=== PATIENT | male | born 1965 | race Caucasian/White ===

== ENCOUNTER 2017-01-12 22:23 | Emergency (ER) | payer MEDICAID ==
[~2017-01-12 22:23] MED LIST: BUSPAR15 MG PO; PENICILLIN; RISPERDAL2 MG PO; TRAZODONE HCL100 MG PO
[2017-01-12 23:26] LABS: BASOPHIL# 0.1 X10e3 (0-0.3); BASOPHIL% 0.9 % (0-2.5); EOSINOPHIL# 0.2 X10e3 (0-0.7); EOSINOPHIL% 1.8 % (0.0-7.0); HEMATOCRIT 37.7 % (38.0-50.0); HEMOGLOBIN 12.4 gm/dL (13.0-16.0); LYMPHOCYTE# 2.6 X10e3 (1.0-3.5); LYMPHOCYTE% 23.6 % (17.0-45.0); MEAN CELL VOLUME 95.8 FL (83-96); MEAN CORPUSCULAR HEMOGLOBIN 31.5 PG (28-34); MEAN CORPUSCULAR HGB CONC 32.8 g/dL (30-36); MEAN PLATELET VOLUME 8.5 FL (6.5-11.5); MONOCYTE# 1.2 X10e3 (0-1.0); MONOCYTE% 11.3 % (3.0-12.0); NEUTROPHIL# 6.8 X10e3 (1.5-7.1); NEUTROPHIL% 62.4 % (40-75); PLATELET COUNT 145 X10e3 (140-420); RED BLOOD COUNT 3.93 X10e (3.90-5.60); WHITE BLOOD COUNT 10.9 X10e3 (4.0-10.5)
[2017-01-12 23:28] LABS: DIFF IND NO
[2017-01-12 23:53] LABS: ALBUMIN SERUM 3.9 g/dL (3.5-5.0); BILIRUBIN,TOTAL 0.5 mg/dL (0.2-2.0); CALCIUM SERUM 8.1 mg/dL (8.4-10.2); CREATININE SERUM 0.7 mg/dL (0.6-1.4); GLOM FILT RATE Estimated 110.1 mL/min (>60); POTASSIUM 3.7 mmol/L (3.5-5.1); PROTEIN TOTAL SERUM 6.9 g/dL (6.0-8.3)
== END 2017-01-13 10:45 ==
LOC: CED 22:23
PROVIDERS: Emergency Medicine
DX: F10.129 Alcohol abuse with intoxication, unspecified (principal); Y90.8 Blood alcohol level of 240 mg/100 ml or more
CPT/HCPCS: 80053; 83690; 85025; 96360; 99285; G0480

== ENCOUNTER 2017-01-13 11:38 | Inpatient (IN) | payer MEDICAID ==
--- NOTE | ~2017-01-13 | PN ---
Unit #: [id number] #: [id number] Patient: CATALINA CARMICHAEL V [id number] [facility] [address] [place] [address] [id number] MR#: [id number] NAME: CATALINA CARMICHAEL V. ROOM: P182 Age: 51 Sex: M Admission Date: 01/13/2017 : 1965 Attending Physician: Reyna Henderson M.D. Admitting Physician: Lary Omer PROGRESS NOTES DATE OF SERVICE: 01/18/2017 DISCUSSION Mr. Carmichael is seen today in coverage for Dr. Henderson. He continues to have active alcohol withdrawal symptoms and an irritable mood. He appears to be mildly responding to internal stimuli, but will not admit to this. He does also appear to have some rambling thought processes. He has some suicidal ideations today. ASSESSMENT Schizoaffective disorder and alcohol dependence. PLAN We will continue current medications and the alcohol detox protocol. Dictated by... Emmanuel Black M.D. ULISES/cr TD: 01/18/2017 14:56 JOB #: [id number] [facility] PROGRESS NOTES Page 1 of 1 X Emmanuel Black MD X PROGRESS NOTE
--- NOTE | ~2017-01-13 | PN ---
Unit #: [id number] #: [id number] Patient: CATALINA CARMICHAEL V [id number] [facility] [address] [place] [address] [id number] MR#: [id number] NAME: CATALINA CARMICHAEL V. ROOM: P115 Age: 51 Sex: M Admission Date: 01/13/2017 : 1965 Attending Physician: Reyna Henderson M.D. Admitting Physician: Reyna Henderson M.D. Primary Care Physician: Alondra Primary Care Physician [facility] PROGRESS NOTES DATE January 15, 2017 DISCUSSION Mr. Carmichael is a 51-year-old, white male who was seen today and chart was reviewed. Case was discussed with the staff who report patient had a rough night last night and was extremely agitated, irritable, and hitting himself and banging his head. A p.r.n. medication had to be given. He was able to finally calm himself down, but has been placed on 1:1 (1) precaution as patient was sitting in bed and as such was unable to carry on meaningful conversation. It appears that he has been exhibiting significant depression, anger, agitation, and irritability. As such, will recommend maintaining him on his current level of precautions. Will monitor his response to the treatment intervention and will make further adjustments as needed. Dictated by... Lary Omer/brock TD: 01/17/2017 09:33 JOB #: [id number] [facility] PROGRESS NOTES Page 1 of 1 X Reyna Henderson MD PROGRESS NOTE
--- NOTE | ~2017-01-13 | DS ---
Unit #: [id number] #: [id number] Patient: CATALINA CARMICHAEL V [id number] [facility] [address] [place] [address] [id number] I MR#: [id number] NAME: CATALINA CARMICHAEL V. ROOM: P182 Age: 51 Sex: M Admission Date: 01/13/2017 : 1965 Discharge Date: 01/20/2017 Attending Physician: Reyna Henderson M.D. Primary Care Physician: Primary Care Physician No DISCHARGE SUMMARY IDENTIFYING DATA Mr. Carmichael is a 51-year-old white male, who is a resident of [place], [place] and is known to us from previous encounter and was self-referred to the hospital. DISCHARGE DIAGNOSES Psychiatric: Schizoaffective disorder, bipolar type, most recent episode depressed, recurrent, moderate, without psychotic features; alcohol dependence, moderate, in acute withdrawals. Medical: Hepatitis C, status post splenectomy. Stressors: Moderate psychosocial stressors. HISTORY OF PRESENT ILLNESS Please see initial psychiatric evaluation for details. PAST PSYCHIATRIC HISTORY Please see initial psychiatric evaluation for details. PAST MEDICAL HISTORY Please see initial psychiatric evaluation for details. HOSPITAL COURSE The patient was admitted to the adult psychiatric and chemical dependency unit at [facility] lina [facility] and was oriented to the hospital environment. Routine p.r.n. medications were initiated, and he was started back on his home medications and alcohol detox protocol was initiated as well. He was initially seen to be very agitated, irritable, restless; however, he was able to come out of the detox without any complications and was willing to continue treatment on an outpatient basis and as such, it was decided that he will be discharged home and will continue treatment on an outpatient basis. DISCHARGE MEDICATIONS None. DISCHARGE CONDITION Stable. PROGNOSIS Fair. Dictated by... Reyna Henderson M.D. Unit #: [id number] #: [id number] Patient: CATALINA CARMICHAEL V IAA/modl TD: 01/20/2017 06:34 JOB #: [id number] DISCHARGE SUMMARY Page 1 of 1 X Reyna Henderson MD X DISCHARGE SUMMARY
--- NOTE | ~2017-01-13 | DS ---
Unit #: [id number] #: [id number] Patient: CATALINA CARMICHAEL V [id number] [facility] [address] [place] [address] [id number] I MR#: [id number] NAME: CATALINA CARMICHAEL V. ROOM: P182 Age: 51 Sex: M Admission Date: 01/13/2017 : 1965 Discharge Date: Attending Physician: Reyna Henderson M.D. Primary Care Physician: Primary Care Physician No DISCHARGE SUMMARY ADDENDUM Mr. Carmichael is a 51-year-old white male, who was scheduled to be discharged yesterday on 01/20/2017; however, his power of resident intern was trying to get him into long-term rehab level of care and bed was arranged for 01/21/2017 and therefore, his discharge was canceled until he could to be transferred to that facility. Dictated by... Lary Omer/cr TD: 01/21/2017 06:19 JOB #: [id number] DISCHARGE SUMMARY Page 1 of 1 X Reyna Henderson MD X DISCHARGE SUMMARY
--- NOTE | ~2017-01-13 | HP ---
Unit #: [id number] #: [id number] Patient: CATALINA CARMICHAEL V [id number] [place] [address] [id number] I MR#: [id number] NAME: CATALINA CARMICHAEL V. ROOM: P182 Age: 51 Sex: M Admission Date: 01/13/2017 : 1965 Attending Physician: Reyna Henderson M.D. Admitting Physician: Reyna Henderson M.D. Primary Care Physician: Primary Care Physician No HISTORY AND PHYSICAL HISTORY OF PRESENT ILLNESS Catalina is a 51 year old admitted to [facility] because of his continued abuse of alcohol. He has had numerous admissions to this facility for treatment of the same. PAST MEDICAL HISTORY 1. Long history of alcohol abuse. 2. Hepatitis C. 3. History of kidney stones. PAST SURGICAL HISTORY 1. Splenectomy secondary to blunt trauma. 2. Abdominal exploration x 2. 3. Fractured left ankle with ORIF. 4. Oral. ALLERGIES Penicillin (rash). SOCIAL HISTORY Smokes one pack per day. Drinks on a daily basis and has a history of polysubstance abuse. FAMILY HISTORY Medically noncontributory. REVIEW OF SYSTEMS CONSTITUTIONAL: No fever or chills. HEENT: Denies any sore throat, ear pain or runny nose. CARDIOVASCULAR: Denies chest pain, irregular heart rhythm or palpitations. CHEST: Denies shortness of breath or cough. No hemoptysis. GASTROINTESTINAL: Denies nausea, vomiting, diarrhea or chronic constipation. ENDOCRINE: Denies history of increased thirst or urination. No recent significant weight loss or gain. GENITOURINARY: Denies dysuria, frequency, or hematuria. SKIN: Denies any rashes. HEMATOLOGIC: Denies history of increased bleeding or bruising. MUSCULOSKELETAL: Denies any hot, swollen joints. No generalized muscle pain. NEUROLOGIC: Denies problems with vision or speech. No frequent, severe headaches. No numbness, tingling or weakness in any extremities. Denies Unit #: [id number] #: [id number] Patient: CATALINA CARMICHAEL V loss of bladder or bowel control. CURRENT MEDICATIONS Detox protocol PHYSICAL EXAMINATION GENERAL: Alert, well-nourished, in no apparent distress. VITAL SIGNS: Blood pressure 118/66, heart rate 80, respirations 16, temperature 98.6. WEIGHT: 165 pounds. HEIGHT: 5'10". SKIN: Warm and dry without rash or lesion. HEENT: Normocephalic. TMs not viewed. Oral and nasal passages clear. Conjunctivae clear. Pupils equal, round and reactive to light and accommodation. Extraocular movements intact. NECK: Supple without lymphadenopathy or thyromegaly. HEART: Regular rate and rhythm without murmur. LUNGS: Clear. ABDOMEN: Soft, nontender. : Not done. EXTREMITIES: No evidence of cyanosis, clubbing or edema. Moves all extremities without focal deficit. NEUROLOGICAL: Grossly within normal limits. Cranial Nerves: II: Visual fragoso are intact. III, IV AND : Extraocular movements are intact. Pupils are equal, round and reactive to light. V: Facial sensation is grossly normal. VII: Facial movements and expression are normal. VIII: Auditory acuity grossly intact. IX, X: Uvula is midline. Phonation is normal. XI: Patient shrugs shoulders and turns head normally. XII: Tongue protrudes in the midline. Sensory and Motor Function: Sensory and motor sensation is grossly normal. Motor: moves all extremities well. Coordination: Gait is normal. Deep Tendon Reflexes: Intact. IMPRESSION Psychiatric admission RECOMMENDATIONS PSYCHIATRIC: Per psychiatrist. MEDICAL: I see no contraindications to participating in facility's activities. MEDICAL PROGNOSIS Good. MEDICAL CONDITION Stable. Dictated by... Kelley Ash P.A.-C. for Lary Nicholas/car Unit #: [id number] #: [id number] Patient: CATALINA CARMICHAEL V TD: 01/14/2017 03:22 JOB #: [id number] HISTORY AND PHYSICAL Page 1 of 1 X Kelley Ash HISTORY AND PHYSICAL
--- NOTE | ~2017-01-13 | PA ---
Unit #: [id number] #: [id number] Patient: CATALINA CARMICHAEL V [id number] [facility] [address] [place] [address] [id number] I MR#: [id number] NAME: CATALINA CARMICHAEL V. ROOM: P204 Age: 51 Sex: M Admission Date: 01/13/2017 : 1965 Date of Assessment: 01/13/2017 Attending Physician: Reyna Henderson M.D. Admitting Physician: Reyna Henderson M.D. PSYCHIATRIC ASSESSMENT DATE OF SERVICE 01/13/2017. IDENTIFYING DATA Mr. Carmichael is a 51 years old single white male, who is a resident of a [place], [place] who is known to us from previous multiple encounters and was transferred to us from [facility] on 72 hours hold. CHIEF COMPLAINT "Suicidal ideation and plan to overdose or shoot myself." HISTORY OF PRESENT ILLNESS Mr. Carmichael is a 51-year-old white male who has long history of chronic mental illness and substance abuse and dependence, who presented to [facility] on 01/12/2017 that indicated his name was Catalina Quinonez and was verbalizing suicidal ideation with a plan to overdose or shoot himself. He was placed on 72 hours hold. The patient stated that he is tired and has given up and he does not want to live at [facility] any more, but his tax attorney, who is also his POA, will not listen to him and the patient stated that he was tired of life and people taking advantage of him and "I'm tired." The patient indicated that people are rotten and cannot trust them and the patient continued to ruminate about his housing and untrustworthy people and would not answer questions other than repeat same information. The ER nurse reported that the patient was brought in by EMS after being [place] lying [place] of a bar [place] and his blood alcohol level was 0.393 when he arrived at the emergency room where he has suffered with alcohol addiction most of his life and reported his name is Catalina Quinonez, and it was not until the clinician assessed him today that it was discovered his name actually is Catalina Carmichael. He has several admissions at [facility]ina [facility] and has history of chronic mental illness and as such, was medically cleared and then was transferred to us. SUBSTANCE ABUSE HISTORY The patient reports extensive history of substance abuse and dependence including experimentation with opioids and crack and cannabis and alcohol remains his drug of choice as he has been drinking regularly most of his life. PAST PSYCHIATRIC HISTORY The patient has a history of multiple inpatient psychiatric and chemical dependency treatments at [facility] in addition to being at [facility], and has been diagnosed and treated for schizoaffective Unit #: [id number] #: [id number] Patient: CATALINA CARMICHAEL V bipolar disorder and alcohol dependence. He has history of poor compliance with outpatient treatment once again. He is not seeing a psychiatrist, not taking any psychotropic medications. PAST MEDICAL HISTORY Hepatitis C, status post splenectomy. ALLERGIES Penicillin. PERSONAL AND SOCIAL HISTORY A 51-year-old white male, who reports that he is single, unemployed, and essentially homeless and has poor social support system. MENTAL STATUS EXAMINATION Middle-aged white male, who was casually dressed with fair personal hygiene, appears to be in no acute distress or discomfort. He was awake and alert on interaction with intact orientation to time, place, and person. His mood was anxious and depressed with a congruent affect. His speech was slow and restricted in content. His thought processes were disorganized with some looseness of associations and flight of ideas and suicidal ideations. His insight and judgment remain significantly impaired. DIAGNOSTIC IMPRESSION Psychiatric: Schizoaffective disorder, bipolar type, most recent episode depressed, recurrent, moderate, without psychotic features; alcohol dependence, moderate, and acute withdrawal. Medical: Hepatitis C, status post splenectomy. Stressors: Moderate psychosocial stressors. TREATMENT PLAN 1. The patient has presented with history of mood disorder and has been decompensating and will need inpatient hospitalization for safety and stabilization. We will start him back on his home medications and detox protocol will be initiated as well. 2. Supportive therapy was provided to the patient. 3. Safe, structured, and nourishing environment will be provided. ESTIMATED LENGTH OF STAY 5 to 7 days. ABILITY TO HELP SELF Limited. WILLINGNESS TO HELP SELF The patient appears to be willing to help self. STRENGTHS 1. Communicative. 2. Cooperative. PROBLEMS 1. Chronic dysphoric symptoms. 2. Chronic chemical dependency. 3. Poor social support system. DISCHARGE CRITERIA This will be contingent upon the patient's ability to show resolution of Unit #: [id number] #: [id number] Patient: CATALINA CARMICHAEL V his depression and anxiety and his ability to stay safe to himself, particularly after discharge from the hospital. Dictated by... Lary Omer/cr TD: 01/14/2017 07:18 JOB #: [id number] PSYCHIATRIC ASSESSMENT Page 1 of 1 X Reyna Henderson MD PSYCHIATRIC ASSESSMENT
--- NOTE | ~2017-01-13 | PN ---
Unit #: [id number] #: [id number] Patient: CATALINA CARMICHAEL V [id number] [facility] [address] [place] [address] [id number] I MR#: [id number] NAME: CATALINA CARMICHAEL V. ROOM: P204 Age: 51 Sex: M Admission Date: 01/13/2017 : 1965 Attending Physician: Reyna Henderson M.D. Admitting Physician: Reyna Henderson M.D. Primary Care Physician: Alondra Primary Care Physician [facility] PROGRESS NOTES DATE 01/13/2017. DISCUSSION Mr. Carmichael is a 59-year-old white male who was seen today and chart reviewed. The case was discussed with the staff. He has been anxious, withdrawn and kept to himself, disorganized, unable to carry on a meaningful conversation and has had significant (1) personal hygiene. MENTAL STATUS EXAMINATION Middle-aged white male who was casually dressed and with poor personal hygiene. He appears to be in no acute distress. He was awake and alert with impaired attention and concentration. Mood was anxious and dysphoric. His speech is fluent, restricted in content. His thought process (2) looseness of association with suicidal ideation. His insight and judgment remain significantly impaired. TREATMENT PLAN 1. Continue on current medication and treatment protocol. Will monitor response to the medication and make further adjustments as needed. 2. Will continue with followup. Dictated by... Lary Omer/mejia TD: 01/15/2017 11:26 JOB #: [id number] [facility] PROGRESS NOTES Page 1 of 1 X Reyna Henderson MD PROGRESS NOTE
--- NOTE | ~2017-01-13 | PN ---
Unit #: [id number] #: [id number] Patient: CATALINA CARMICHAEL V [id number] [facility] [address] [place] [address] [id number] I MR#: [id number] NAME: CATALINA CARMICHAEL V. ROOM: P182 Age: 51 Sex: M Admission Date: 01/13/2017 : 1965 Attending Physician: Reyna Henderson M.D. Admitting Physician: Reyna Henderson M.D. Primary Care Physician: Primary Care Physician Alondra RYAN NOTES DATE 01/17/2017 DISCUSSION Mr. Carmichael is a 51-year-old white male who was seen today and chart was reviewed and case was discussed with the staff. He has been anxious, withdrawn though has not shown any agitation, irritability and has been cooperative with treatment recommendations as he has been taking medications and tolerating them fairly well with no reported side effects. MENTAL STATUS EXAMINATION Middle-aged white male who was casually dressed with fair personal hygiene and appears to be in no acute distress or discomfort. He was awake and alert with impaired attention and concentration. His mood was anxious with congruent affect. His speech is slow and restricted in content. He denies any suicidal or homicidal ideations and also denies any auditory or visual hallucinations. His insight and judgement remains slightly impaired. TREATMENT PLAN 1. Will continue on his current medications and treatment protocol. Will monitor his response and make further adjustments as needed. 2. Will continue to follow up. Dictated by... Lary Omer/lisa TD: 01/20/2017 08:27 JOB #: [id number] Unit #: [id number] #: [id number] Patient: CATALINA CARMICHAEL PROGRESS NOTES Page 1 of 1 X Reyna Henderson MD PROGRESS NOTE
== END 2017-01-21 09:50 | disposition home or self-care (01) | DRG 885 ==
LOC: P1E 11:38 → P2S 01-14 22:35 → P1S 01-15 15:53 → P1E 01-17 10:43
PROC: HZ2ZZZZ Detoxification Services for Substance Abuse Treatment (ICD-10-PCS; principal; 2017-01-13)
DX: F25.0 Schizoaffective disorder, bipolar type (principal); F31.32 Bipolar disorder, current episode depressed, moderate; F10.239 Alcohol dependence with withdrawal, unspecified; B19.20 Unspecified viral hepatitis C without hepatic coma; F17.210 Nicotine dependence, cigarettes, uncomplicated

== ENCOUNTER 2017-03-10 04:00 | Inpatient (IN) | payer MEDICAID ==
--- NOTE | ~2017-03-10 | HP ---
Unit #: [id number] #: [id number] Patient: CATALINA CARMICHAEL V [id number] [place] [address] [id number] I MR#: [id number] NAME: CATALINA CARMICHAEL V. ROOM: [facility] Age: 51 Sex: M Admission Date: 03/10/2017 : 1965 Attending Physician: Reyna Henderson M.D. Admitting Physician: Ryena Henderson M.D. Primary Care Physician: Generic Doctor Not In System HISTORY AND PHYSICAL HISTORY OF PRESENT ILLNESS Catalina is a 51 year old admitted to [address] [place] [address] because of his continued abuse of alcohol. He has had numerous admissions to this facility. PAST MEDICAL HISTORY 1. Long history of alcohol abuse. 2. Hepatitis C. 3. History of kidney stones. PAST SURGICAL HISTORY 1. Splenectomy secondary to blunt trauma. 2. Abdominal exploration x2. 3. Fractured left ankle with ORIF. 4. Oral. ALLERGIES Penicillin (rash). SOCIAL HISTORY Smokes one pack per day. Drinks on a daily basis. Has a history of polysubstance abuse. FAMILY HISTORY Medically noncontributory. REVIEW OF SYSTEMS CONSTITUTIONAL: No fever or chills. HEENT: Denies any sore throat, ear pain or runny nose. CARDIOVASCULAR: Denies chest pain, irregular heart rhythm or palpitations. CHEST: Denies shortness of breath or cough. No hemoptysis. GASTROINTESTINAL: Denies nausea, vomiting, diarrhea or chronic constipation. ENDOCRINE: Denies history of increased thirst or urination. No recent significant weight loss or gain. GENITOURINARY: Denies dysuria, frequency, or hematuria. SKIN: Denies any rashes. HEMATOLOGIC: Denies history of increased bleeding or bruising. MUSCULOSKELETAL: Denies any hot, swollen joints. No generalized muscle pain. NEUROLOGIC: Denies problems with vision or speech. No frequent, severe headaches. No numbness, tingling or weakness in any extremities. Denies loss of bladder or bowel control. Unit #: [id number] #: [id number] Patient: CATALINA CARMICHAEL V CURRENT MEDICATIONS Detox protocol. PHYSICAL EXAMINATION GENERAL: Alert, well nourished. No apparent distress. VITAL SIGNS: Blood pressure 126/76, heart rate 80, respirations 16, and temperature 98.6. WEIGHT: 179. SKIN: Warm and dry without rash or lesion. HEENT: Normocephalic. TMs not viewed. Oral and nasal passages clear. Conjunctivae clear. PERRLA. EOMs intact. NECK: Supple without lymphadenopathy or thyromegaly. HEART: Regular rate and rhythm without murmur. LUNGS: Clear. ABDOMEN: Soft, nontender. : Not done. EXTREMITIES: No evidence of cyanosis, clubbing or edema. Moves all without focal deficit. NEUROLOGICAL: Grossly within normal limits. Cranial Nerves: II: Visual fragoso are intact. III, IV AND : Extraocular movements are intact. Pupils are equal, round and reactive to light. V: Facial sensation is grossly normal. VII: Facial movements and expression are normal. VIII: Auditory acuity grossly intact. IX, X: Uvula is midline. Phonation is normal. XI: Patient shrugs shoulders and turns head normally. XII: Tongue protrudes in the midline. Sensory and Motor Function: Sensory and motor sensation is grossly normal. Motor: moves all extremities well. Coordination: Gait is normal. Deep Tendon Reflexes: Intact. IMPRESSION Psychiatric admission. RECOMMENDATIONS PSYCHIATRIC: Per psychiatrist. MEDICAL: I see no contraindication to participate in this facility's activities. MEDICAL PROGNOSIS Good. MEDICAL CONDITION Stable. Dictated by... Kelley Ash PKylerAKyler-Derick. for Lary Nicholas/yadira TD: 03/11/2017 11:13 JOB #: [id number] Unit #: [id number] #: [id number] Patient: CATALINA CARMICHAEL V HISTORY AND PHYSICAL Page 1 of 1 X Kelley Ash HISTORY AND PHYSICAL
--- NOTE | ~2017-03-10 | PN ---
Unit #: [id number] #: [id number] Patient: CATALINA CARMICHAEL V [id number] [facility] [address] [place] [address] [id number] I MR#: [id number] NAME: CATALINA CARMICHAEL V. ROOM: P121 Age: 51 Sex: M Admission Date: 03/10/2017 : 1965 Attending Physician: Reyna Henderson M.D. Admitting Physician: Reyna Henderson M.D. Primary Care Physician: Glo Doctor Not In System [facility] PROGRESS NOTES DATE 03/11/2017 DISCUSSION Mr. Carmichael is a 51-year-old, white male who was seen today and chart was reviewed and case was discussed with the staff. He has been anxious, withdrawn and rather seclusive to himself. Meanwhile, he has been cooperative with the treatment recommendations. He has been taking the medication and tolerating them fairly well with no reported side effects. MENTAL STATUS EXAM Middle-aged white male who was casually dressed with fair personal hygiene, appears to be in slight distress or discomfort. He was awake and alert with impaired attention and concentration. His mood was anxious with a congruent affect. His speech was slow and restricted in content. He denies any suicidal or homicidal ideation. His thought processes were disorganized with some looseness of associations and flight of ideas and paranoid ideation and delusional behavior. His insight and judgement remains significantly impaired. TREATMENT PLAN 1. We will continue him on his current medications and treatment protocol. We will monitor his response to the medication and make further adjustments as needed. 2. We will continue to follow up. Dictated by... Lary Omer/car TD: 03/12/2017 03:21 JOB #: [id number] Unit #: [id number] #: [id number] Patient: CATALINA CARMICHAEL PROGRESS NOTES Page 1 of 1 X Reyna Henderson MD PROGRESS NOTE
--- NOTE | ~2017-03-10 | PN ---
Unit #: [id number] #: [id number] Patient: CATALINA CARMICHAEL V [id number] [facility] [address] [place] [address] [id number] MR#: [id number] NAME: CATALINA CARMICHAEL V. ROOM: P121 Age: 51 Sex: M Admission Date: 03/10/2017 : 1965 Attending Physician: Reyna Henderson M.D. Admitting Physician: Reyna Henderson M.D. Primary Care Physician: Generic Doctor Not In System [facility] PROGRESS NOTES DATE 03/13/2017 DISCUSSION Mr. Carmichael is a 51-year-old white male who was seen today and chart was reviewed and case was discussed with the staff. He appears to be doing much better and has been calm and cooperative with treatment recommendations as he has been taking medications and tolerating them fairly well. MENTAL STATUS EXAMINATION Middle-aged white male who was casually dressed with fair personal hygiene and appears to be in no acute distress or discomfort. He was awake and alert on interaction with intact orientation. His mood was anxious with congruent affect. He denies any current suicidal or homicidal ideations and also denies any auditory or visual hallucinations. His insight and judgement remains slightly impaired. TREATMENT PLAN 1. Will continue on his current medications and treatment protocol and will monitor his response to the medications and make further adjustments as needed. 2. Will continue to follow up. Dictated by... Reyna Henderson M.D. IAA/lisa TD: 03/13/2017 21:19 JOB #: [id number] Unit #: [id number] #: [id number] Patient: CATALINA CARMICHAEL PROGRESS NOTES Page 1 of 1 X Reyna Henderson MD X PROGRESS NOTE
--- NOTE | ~2017-03-10 | TN ---
Unit #: [id number] #: [id number] Patient: CATALINA CARMICHAEL V [id number] [facility] [address] [place] [address] [id number] I MR#: [id number] NAME: CATALINA CARMICHAEL V. ROOM: [facility] Age: 51 Sex: M Admission Date: 03/10/2017 : 1965 Discharge Date: 03/14/2017 Attending Physician: Reyna Henderson M.D. Primary Care Physician: Generic Doctor Not In System LOC TRANSFER NOTE DATE OF SERVICE: 03/17/2017 HISTORY OF PRESENT ILLNESS Mr. Carmichael is a 51-year-old, single, white male with history of alcohol dependence and bipolar disorder, who is known to us from previous encounter, was stepped down to the outpatient treatment program from the adult inpatient psychiatric unit, where he was hospitalized under my care from 03/10/2017 to 03/14/2017. He was stabilized on a combination of Seroquel and Neurontin, and was stepped down to the outpatient treatment program. When seen by me, the patient appears to be doing much better and reports that he has been taking his medication, but that he did not get his prescription for Neurontin, would like to get back on that. He was noticed to have a good personal hygiene and was polite and pleasant and compliant with treatment recommendations. SUBSTANCE ABUSE HISTORY The patient has lifelong history of alcohol dependence, but denies any other substance abuse issues. PAST PSYCHIATRIC HISTORY The patient has had history of inpatient and outpatient psychiatric hospitalizations across different facilities and is currently supposed to be on a combination of Seroquel and Neurontin. PAST MEDICAL HISTORY The patient's medical history is insignificant. ALLERGIES Penicillin. PERSONAL AND SOCIAL HISTORY A 51-year-old white male who reports that he is single, unemployed, and his senior attorney is his payee and he has put him in a motel at this time. MENTAL STATUS EXAMINATION Middle-aged white male who was casually dressed with fair personal hygiene, appears to be in no acute distress or discomfort. He was awake and alert on interaction with intact orientation. His mood was anxious with a congruent affect. His speech was slow and goal directed. He denies any suicidal or homicidal ideations, and also denies any auditory or visual hallucinations. His insight and judgment remain slightly impaired. Unit #: [id number] #: [id number] Patient: CATALINA CARMICHAEL V DIAGNOSTIC IMPRESSION Psychiatric: Schizoaffective disorder, bipolar type, most recent episode depressed, recurrent, moderate, without psychotic features; alcohol dependence, moderate. Medical: None. Stressors: Moderate psychosocial stressors. TREATMENT PLAN 1. The patient has presented with a history of mood disorder, and has been decompensating. We will recommend enrolling him into the outpatient treatment program and maintaining him on his current medications. We will monitor his response and make further adjustments as needed. 2. Supportive therapy was provided to the patient. ESTIMATED LENGTH OF STAY 14 to 21 days. ABILITY TO HELP SELF Limited. WILLINGNESS TO HELP SELF The patient appears to be willing to help self. STRENGTHS 1. Communicative. 2. Cooperative. PROBLEMS 1. Chronic dysphoric symptoms. 2. Poor social support system. DISCHARGE CRITERIA This will be contingent upon the patient's ability to show resolution of his depression and anxiety, and his ability to stay safe to himself, particularly after discharge from the hospital. Dictated by... Lary Omer/cr TD: 03/17/2017 20:58 JOB #: [id number] LOC TRANSFER NOTE Page 1 of 1 X Reyna Henderson MD X LOC TRANSFER NOTE
--- NOTE | ~2017-03-10 | DS ---
Unit #: [id number] #: [id number] [facility]: [facility] V [id number] [facility] [address] [place] [address] [id number] I MR#: [id number] NAME: CATALINA CARMICHAEL V. ROOM: [facility] Age: 51 Sex: M Admission Date: 03/10/2017 : 1965 Discharge Date: 03/14/2017 Attending Physician: Reyna Henderson M.D. Primary Care Physician: Generic Doctor Not In System DISCHARGE SUMMARY IDENTIFYING DATA Mr. Carmichael is a 51-year-old single white male with history of mood disorder, who is known to us from previous encounter and was transferred to us from [facility]. DISCHARGE DIAGNOSES Psychiatric: Schizoaffective disorder, bipolar type, most recent episode depressed, recurrent, moderate, with psychosis; alcohol dependence, moderate. Medical: None. Stressors: Mild psychosocial stressors. HISTORY OF PRESENT ILLNESS Please see initial psychiatric evaluation for details. PAST PSYCHIATRIC HISTORY Please see initial psychiatric evaluation for details. PAST MEDICAL HISTORY Please see initial psychiatric evaluation for details. HOSPITAL COURSE The patient was admitted to the adult chemical dependency unit at [facility] l[facility] Doran and was oriented to the hospital environment. Routine p.r.n. medications were initiated, and he was started back on his home medications and alcohol detox protocol was initiated and Seroquel was also started on his own request at 50 mg at bedtime and was closely monitored. He was taking the medications regularly and was tolerating them fairly well and was able to show a fairly decent therapeutic response and was able to come out of the detox without any complications with complete resolution of his psychosis and agitation and no aggression was noted and he was wanting to go home and was denying any thoughts of wanting to hurt himself or anyone else and was not meeting criteria for involuntary psychiatric hospitalization and with emphasis on continuity of care, particularly on an outpatient basis, it was decided that he will be discharged home and will continue treatment on an outpatient basis. DISCHARGE MEDICATIONS Seroquel 50 mg at bedtime for psychosis. DISCHARGE CONDITION Stable. PROGNOSIS Fair. Unit #: [id number] #: [id number] Patient: CATALINA CARMICHAEL V Dictated by... Reyna Henderson M.D. IAA/modl TD: 03/14/2017 07:04 JOB #: [id number] DISCHARGE SUMMARY Page 1 of 1 X Reyna Henderson MD DISCHARGE SUMMARY
--- NOTE | ~2017-03-10 | PA ---
Unit #: [id number] #: [id number] Patient: CATALINA CARMICHAEL V [id number] [facility] [address] [place] [address] [id number] I MR#: [id number] NAME: CATALINA CARMICHAEL V. ROOM: P121 Age: 51 Sex: M Admission Date: 03/10/2017 : 1965 Date of Assessment: Attending Physician: Reyna Henderson M.D. Admitting Physician: Reyna Henderson M.D. PSYCHIATRIC ASSESSMENT DATE OF SERVICE 03/10/2017. IDENTIFYING DATA Mr. Carmichael is a 51-year-old single disabled white male, who is known to us from previous encounter, was transferred to us from [facility] Emergency Room. CHIEF COMPLAINT "Suicidal ideation and a plan." HISTORY OF PRESENT ILLNESS Mr. Carmichael is a 51-year-old white male with long history of mood disorder and alcohol dependence, who presented to [facility] Emergency Room due to paranoia and suicidal ideation and a plan and stated "I'm scared like no body wants me to live, I was scared for my life. I feel like someone was trying to set me up to kill me. They said I messed with some little kid, but I never did that. They have proved I was not there and I feel like they were on it. The police they probably put stuff in my food to try to kill me. I want to be in the witness protection program, I can't have a gun, but I want to get me a gun for protection." ER nurse reported that the patient initially reported suicidal ideations and stated that he had a plan to jump in front of a car and notes that that he was going to overdose and his drug screen was negative as well as his blood alcohol level and he was seen to be unkempt, disheveled, disorganized, quite irritable, impulsive, and exhibiting acute psychosis with suicidal and vague homicidal ideations and was seen to be a significant threat to himself and others, and as such, recommendation for inpatient level of care was made and the patient was medically cleared and transferred to us. SUBSTANCE ABUSE HISTORY The patient has long history of alcohol dependence, though he has experimented with cocaine, acid, methamphetamine, and benzodiazepines on a sporadic basis, alcohol has been his drug of choice and reports that he has been drinking since he was 11 years old. PAST PSYCHIATRIC HISTORY The patient has had history of numerous and multiple inpatient psychiatric hospitalizations including [facility], and has been diagnosed for schizoaffective disorder, bipolar type and is supposed to be on Risperdal, but has history of poor compliance with outpatient treatment including followups and Unit #: [id number] #: [id number] Patient: CATALINA CARMICHAEL V medication compliance. PAST MEDICAL HISTORY The patient's medical history is significant for hepatitis C. ALLERGIES Penicillin. PERSONAL AND SOCIAL HISTORY A 51-year-old white male, who reports that he is single, unemployed, and homeless and has poor social support system. MENTAL STATUS EXAMINATION Middle-aged white male who was casually dressed with fair personal hygiene, appears to be in no acute distress or discomfort. He was awake and alert on interaction with intact orientation to time, place, and person. His mood was anxious and depressed with a congruent affect. His speech was slow and restricted in content. His thought processes were disorganized with some looseness of associations and suicidal and homicidal ideations and paranoid ideations and delusional behavior. His insight and judgment remain significantly impaired. DIAGNOSTIC IMPRESSION Psychiatric: Schizoaffective disorder, bipolar type, most recent episode depressed, recurrent, moderate, with psychosis; alcohol dependence, moderate. Medical: None. Stressors: Moderate psychosocial stressors. TREATMENT PLAN 1. The patient has presented with history of chronic mental illness and has been decompensating and will need inpatient hospitalization for safety and stabilization. We will start him back on his home medications. We will adjust the medications and monitor response. 2. Supportive therapy was provided to the patient. 3. Safe, structured, and nourishing environment will be provided. ESTIMATED LENGTH OF STAY 5 to 7 days. ABILITY TO HELP SELF Limited. WILLINGNESS TO HELP SELF The patient appears to be willing to help self. STRENGTHS 1. Communicative. 2. Cooperative. PROBLEMS 1. Chronic dysphoric symptoms. 2. Chronic chemical dependency. 3. Poor social support system. DISCHARGE CRITERIA This will be contingent upon the patient's ability to show resolution of his depression and psychosis and his ability to stay safe to himself, particularly after discharge from the hospital. Unit #: [id number] #: [id number] Patient: CATALINA CARMICHAEL V Dictated by... Lary Omer/cr TD: 03/12/2017 00:11 JOB #: [id number] PSYCHIATRIC ASSESSMENT Page 1 of 1 X Reyna Henderson MD X PSYCHIATRIC ASSESSMENT
--- NOTE | ~2017-03-10 | PN ---
Unit #: [id number] #: [id number] Patient: CATALINA CARMICHAEL V [id number] [facility] [address] [place] [address] [id number] I MR#: [id number] NAME: CATALINA CARMICHAEL V. ROOM: P121 Age: 51 Sex: M Admission Date: 03/10/2017 : 1965 Attending Physician: Reyna Henderson M.D. Admitting Physician: Reyna Henderson M.D. Primary Care Physician: Generic Doctor Not In System [facility] PROGRESS NOTES DATE 03/12/2017 DISCUSSION Mr. Carmichael is a 51-year-old, white male who was seen today and chart was reviewed and case was discussed with the staff. He has been anxious, withdrawn and rather seclusive to himself. Meanwhile, he has been cooperative with the prescription recommendations. He has been taking the medication and tolerating them fairly well with no reported side effects. MENTAL STATUS EXAM Middle-aged white male who was casually dressed with fair personal hygiene, appears to be in no acute distress or discomfort. He was awake and alert with intact orientation. His mood was anxious with congruent affect. He denies any suicidal or homicidal ideation. His insight and judgement remains slightly impaired. TREATMENT PLAN 1. We will continue him on his current medications and treatment protocol. We will monitor his response to the medication and make further adjustments as needed. 2. We will continue to follow up. Dictated by... Lary Omer/car TD: 03/13/2017 01:04 JOB #: [id number] Unit #: [id number] #: [id number] Patient: CATALINA CARMICHAEL V [facility] PROGRESS NOTES Page 1 of 1 X Reyna Henderson MD X PROGRESS NOTE
[2017-03-12 12:46] LABS: URINE APPEARANCE CLEAR; URINE BILIRUBIN NEG (NEG); URINE BLOOD NEG (NEG); URINE COLOR DK YELLOW; URINE GLUCOSE NEG (NEG); URINE KETONE NEG (NEG); URINE LEUKOCYTE ESTERASE NEG (NEG); URINE NITRATE NEG (NEG); URINE PH 5.5 (5-8); URINE PROTEIN NEG (NEG); URINE SPECIFIC GRAVITY 1.012 (1.003-1.035); URINE UROBILINOGEN 0.2 MG/DL (NEG)
[2017-03-12 13:02] LABS: AMPHETAMINE NEG (NEG); BARBITURATES NEG (NEG); BENZODIAZEPINES POS (NEG); COCAINE NEG (NEG); MARIJUANA NEG (NEG); OPIATES NEG (NEG); TRICYCLIC ANTIDEPRESSANTS NEG (NEG); U METHADONE NEG (NEG)
== END 2017-03-14 11:20 | DRG 885 ==
LOC: P1S 11:35
PROVIDERS: Psychiatry & Neurology Psychiatry
DX: F25.0 Schizoaffective disorder, bipolar type (principal); F31.32 Bipolar disorder, current episode depressed, moderate; R45.851 Suicidal ideations; F29 Unspecified psychosis not due to a substance or known physiological condition; F10.20 Alcohol dependence, uncomplicated; B19.20 Unspecified viral hepatitis C without hepatic coma; Z88.0 Allergy status to penicillin; F17.210 Nicotine dependence, cigarettes, uncomplicated
CPT/HCPCS: 80307; 81003